=== PATIENT | female | born 1995 | race Two or more races ===

== ENCOUNTER 2019-09-22 20:41 | Emergency (ER) | payer MEDICAID ==
[~2019-09-22] VITALS: Ht 162.6 cm; Wt 72.6 kg
[2019-09-22 20:50] VITALS: BP 118/79
--- NOTE | 2019-09-22 20:50 | NUR ---
ED Nurse Note: Pt walked into ED from home for c/o panic attack and feeling nauseous for the past week. 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 She notes this gives her anxiety and she becomes short of breath if she feels very anxious. No cough or fever noted. Pt is aaox4, breathing is normal and unlabored, VSS.
[2019-09-22 22:41] LABS: APPEARANCE,URINE CLEAR; BILIRUBIN, URINE NEGATIVE (NEGATIVE); COLOR,URINE PALE YELLOW; GLUCOSE, URINE (UA) NEGATIVE (NEGATIVE); KETONES,URINE NEGATIVE (NEGATIVE); LEUKOCYTE ESTERASE ,URINE NEGATIVE (NEGATIVE); NITRITE,URINE NEGATIVE (NEGATIVE); PH,URINE 8 (4.5-8.0); PROTEIN,URINE NEGATIVE (NEGATIVE); UROBILINOGEN,URINE NORMAL MG/DL (0.0-1.0)
--- NOTE | 2019-09-22 23:00 | NUR ---
ED Nurse Note: Pt states she is feeling better after medication. NAD noted.
--- NOTE | 2019-09-22 23:02 | Emergency Room Report ---
History of Present Illness General Chief Complaint: General Complaint Source: Patient Present Illness HPI Patient presents complaining about anxiety. She is concerned about a possible COVID-19 exposure with coworkers. In addition there is stress. She feels safe at home. She has had some difficulty sleeping and tried chamomile tea without success. Today the anxiety became overwhelming and she felt palpitations, dyspnea and slight disorientation. This sensation has improved. She denied any body pain at that time and denied carpopedal spasms. She denies suicidal or homicidal ideation. She is never presented or been evaluated for anxiety in the past. She has a family history of anxiety and her father does take significant medications to control his anxiety. She tried a THC Oreo and it seemed to help. This was 1 episode. She denies COVID-19 symptoms at this time, however she has exposure through her coworkers. No fevers, chills, sore throat, chest pain, nausea, vomiting, diarrhea, dysuria , abdominal pain, joint pain, rashes, visual changes, headache. Allergies: Coded Allergies: No Known Allergies (Unverified , 09/22/19) COVID-19 Screening Contact w/high risk pt: No Recent Travel to affected area: No Experienced COVID-19 symptoms?: Yes COVID-19 symptoms experienced: Shortness of Breath, Flu-Like Symptoms COVID-19 Testing performed DIRECTOR STYLE: No Patient History Social History: Reports: drug use - Occasional THC; Denies: smoking, alcohol use Social History Narrative Works at [employer] Last Menstrual Period: 09/18/19 Now: No : 0 Para: 0 Reviewed Nursing Documentation: PMH: Agreed; PSxH: Agreed Nursing Documentation-PMH Past Medical History: No History, Except For History Of Psychiatric Problem: Yes - anxiety Review of Systems All Other Systems: negative except mentioned in HPI Physical Exam Vital Signs Date Time Temp Pulse Resp B/P (MAP) Pulse Ox O2 Delivery O2 Flow Rate FiO2 09/22/19 20:46 98.4 71 18 118/79 (92) 99 Room Air Sp02 EP Interpretation: reviewed, normal General Appearance: well appearing, no apparent distress, GCS 15 Head: normocephalic, atraumatic Eyes: bilateral eye normal inspection, bilateral eye PERRL, bilateral eye EOMI ENT: other - Wearing a mask Neck: full range of motion, supple Respiratory: lungs clear, normal breath sounds Cardiovascular #1: regular rate, rhythm Cardiovascular #2: 2+ radial (R) Gastrointestinal: normal inspection Genitourinary: no CVA tenderness Musculoskeletal: back normal, normal range of motion, digits/nails normal, gait /station normal Neurologic: alert, oriented x3, grossly normal Psychiatric: no suicidal/homicidal ideation, anxious - A call Skin: no rash, warm/dry Medical Decision Making Diagnostic Impression: Primary Impression: Anxiety ER Course Patient presents after having an increase in anxiety recently and a significant episode today. Differential includes anxiety, , pulmonary embolus amongst others. Based on vital signs and history pulmonary embolus is extremely unlikely. Patient evaluated for possibility of . Patient treated with Vistaril. Based on her history and physical other laboratory evaluation is not indicated at this time. Patient improved with Vistaril. Discussed treatment plan with patient and the need for follow-up. Patient stable for outpatient observation and treatment. Laboratory Tests Test 09/22/19 22:00 Urine Color Pale yellow Urine Appearance Clear Urine pH 8 (4.5-8.0) Urine Specific [place] 1.010 (1.005-1.035) Urine Protein Negative (NEGATIVE) Urine Glucose (UA) Negative (NEGATIVE) Urine Ketones Negative (NEGATIVE) Urine Blood Negative (NEGATIVE) Urine Nitrite Negative (NEGATIVE) Urine Bilirubin Negative (NEGATIVE) Urine Urobilinogen Normal MG/DL (0.0-1.0) Urine Leukocyte Esterase Negative (NEGATIVE) Urine HCG, Qualitative Negative (NEGATIVE) Last Vital Signs Date Time Temp Pulse Resp B/P (MAP) Pulse Ox O2 Delivery O2 Flow Rate FiO2 09/22/19 23:15 98.6 75 18 115/78 99 Room Air Status: improved Disposition: HOME, SELF-CARE Condition: Improved Scripts Hydroxyzine Pamoate (VISTARIL) 25 Mg Capsule 25 MG PO Q8HR PRN for For Anxiety, #10 CAP Prov: Mulugeta Feliciano MD 09/22/19 Referrals: NON PHYSICIAN (PCP) Mulugeta Feliciano MD Sep 22, 2019 23:02
[2019-09-22] MEDS ORDERED: VISTARIL25 M1 PO (23:04)
[2019-09-22 23:15] VITALS: BP 115/78
--- NOTE | 2019-09-22 23:15 | NUR ---
ER DISCHARGE NOTE: Patient is cleared to be discharged per ERMD, pt is aox4, on room air, with stable vital signs. pt was given dc and prescription instructions, pt was able to verbalize understanding, pt id band removed. pt is able to ambulate with steady gait. pt took all belongings.
== END 2019-09-22 23:15 | disposition home or self-care (01) ==
LOC: EMR 21:25
DX: F41.9 Anxiety disorder, unspecified (principal)
CPT/HCPCS: 81003; 81025; Z7502; 99283